=== PATIENT | female | born 1935 | race Caucasian/White ===

== ENCOUNTER 2018-02-16 12:13 | Emergency (ER) | payer OTHER ==
[~2018-02-16] VITALS: Ht 152.4 cm; Wt 56.7 kg
[~2018-02-16 12:13] MED LIST: ATEN50TA PO; BENA20TA14 PO; CLON0.2T PO; FENO160T8 PO; OMEP20CA74 PO
[2018-02-16] MEDS ORDERED: cloNIDine HCL 0.1 MG TAB PO ONE (15:30)
[2018-02-16 16:54] VITALS: BP 146/75
== END 2018-02-16 17:17 | disposition home or self-care (01) ==
LOC: ER 12:13
DX: M71.22 Synovial cyst of popliteal space [Baker], left knee (principal); I10 Essential (primary) hypertension; I25.10 Atherosclerotic heart disease of native coronary artery without angina pectoris; E78.5 Hyperlipidemia, unspecified; M19.90 Unspecified osteoarthritis, unspecified site
CPT/HCPCS: 93971

== ENCOUNTER 2018-11-18 19:13 | Inpatient (IN) | payer OTHER ==
[~2018-11-18] VITALS: Ht 152.4 cm; Wt 58.8 kg
[2018-11-18 20:05] LABS: Basophils # (auto) 0 uL; Basophils % (auto) 0.5 % (0.0-2.0); Eosinophils # (auto) 0.2 uL; Eosinophils % (auto) 2.7 % (0.0-7.0); Hematocrit 41.6 % (36.0-46.0); Hemoglobin 13.9 g/dL (12.2-16.2); Lymphocytes # (auto) 2.3 uL; Lymphocytes % (auto) 27.1 % (10.0-50.0); Mean Corpuscular Hemoglobin 29.8 pg (28.0-32.0); Mean Corpuscular Hgb Conc. 33.4 g/dL (32.0-36.0); Mean Corpuscular Volume 89.3 fL (80.0-100.0); Monocytes # (auto) 0.9 uL; Monocytes % (auto) 10.8 % (0.0-12.0); Neutrophils # (auto) 5.1 uL; Neutrophils % (auto) 58.9 % (37.0-80.0); Platelet Count (auto) 336 10^3/uL (140-450); Red Blood Cells 4.66 10^6/uL (4.0-5.20); Red Cell Distribution Width 14.3 % (11.8-14.3); White Blood Cell 8.6 10^3/uL (4.4-10.8)
[2018-11-18 20:21] LABS: Alanine Aminotransferase 27 U/L (13-56); Albumin 4.7 g/dL (3.4-5.0); Anion Gap 8 (5-15); Blood Urea Nitrogen 34 mg/dL (7-18); Calcium 9.3 mg/dL (8.5-10.1); Carbon Dioxide 21 mmol/L (21-32); Chloride 110 mmol/L (98-107); Glucose 141 mg/dL (74-106); Magnesium 1.7 mg/dL (1.6-2.6); Potassium 4.2 mmol/L (3.5-5.1); Sodium 139 mmol/L (136-145)
[2018-11-18 20:26] LABS: Alkaline Phosphatase 56 U/L (45-117); Aspartate Aminotransferase 33 U/L (15-37); BUN/Creatinine Ratio 19.3; Bilirubin, Total 0.3 mg/dL (0.2-1.0); GFR African American 35 mL/min; GFR Non-African American 29 mL/min; Total Protein 8.8 g/dL (6.4-8.2)
[2018-11-18 20:38] LABS: Partial Thromboplastin Time 27.8 sec (23.78-33.04); Prothrombin Time 10.7 sec (9.27-12.13)
[2018-11-18] MEDS ORDERED: LORazepam 2MG/ML-1ML VIAL IV ONE (21:00)
[2018-11-19] MEDS ORDERED: TEMAZEPAM 15 MG CAP PO PRN (02:00)
[2018-11-19] MEDS ORDERED: HYDROcodone-ACET 5/325MG TAB PO PRN (02:00)
[2018-11-19] MEDS ORDERED: ACETAMINOPHEN 325 MG TAB PO PRN (02:00)
[2018-11-19] MEDS ORDERED: ONDANSETRON HCL 4 MG/2 ML VIAL IV PRN (02:00)
[2018-11-19 04:17] VITALS: BP 149/85
[2018-11-19 04:35] VITALS: BP 149/85
[2018-11-19] MEDS ORDERED: PNEUMOCOCCAL VACC POLYS 25 MCG/0.5 ML VIAL IM ONE (05:00)
[2018-11-19] MEDS: PANTOPRAZOLE 40 MG TAB PO SCH (05:59)
--- NOTE | 2018-11-19 06:19 | NUR ---
Shift Note The patient arrived to the floor at approximately 0300hrs. She is medically stable, A&O x4, denies pain. She had experienced episodes of loss of feeling, numbness, to the right side of her body prior to coming to the ER. She appeared to have equal strength bilaterally during the assessment but admitted the feeling comes and goes. The patient agreed to the pneumonia vaccine but we are current out of stock on the floor. Will pass on to day shift. Med rec completed but the patient feels there may be one med missing from the list. She will have her daughter bring it in.
--- NOTE | 2018-11-19 07:30 | NUR ---
Opening Shift Note Assumed care of patient, awake, alert, and oriented x4. No S/S of distress/SOB or pain. IV in right forearm 20 gauge asymptomatic, patent, intact, and saline locked. Bed locked and in lowest position and call light is within reach. Instructed on POC and to call for assist PRN, and call light within reach. Will continue to monitor for changes Q1hr and PRN.
[2018-11-19 08:00] VITALS: BP 152/73
[2018-11-19] MEDS: ATENOLOL 50 MG TAB PO SCH ×2 (09:49→22:00)
[2018-11-19] MEDS: cloNIDine HCL 0.1 MG TAB PO SCH ×2 (09:50→22:00)
[2018-11-19] MEDS: ENOXAPARIN SOD 30 MG/0.3 ML SYRINGE SC SCH (09:51)
[2018-11-19] MEDS: ASPirin 81 mg TAB PO SCH (10:00)
[2018-11-19] MEDS: FENOFIBRATE 160MG TAB PO SCH (10:00)
--- NOTE | 2018-11-19 10:00 | NUR ---
DR. HOPPER NEUROLOGIST AT BEDSIDE.
[2018-11-19] MEDS ORDERED: LORazepam 2MG/ML-1ML VIAL IV PRN (11:15)
--- NOTE | 2018-11-19 11:59 | NUR ---
PATIENT TAKEN TO MRI VIA WHEELCHAIR.
[2018-11-19 12:00] VITALS: BP 143/80
[2018-11-19 12:24] LABS: Cholesterol 228 mg/dL (< 200); Triglycerides 329 mg/dL (< 150)
[2018-11-19 12:26] LABS: HDL Cholesterol 35 mg/dL (40-59); LDL Cholesterol 146 mg/dL (< 100)
--- NOTE | 2018-11-19 12:45 | NUR ---
PATIENT RETURNED TO ROOM FROM MRI VIA WHEELCHAIR.
[2018-11-19] MEDS ORDERED: ATORVASTATIN 20 MG TAB PO ONE (15:15)
[2018-11-19 16:52] VITALS: BP 128/64
--- NOTE | 2018-11-19 19:00 | NUR ---
ENDORSED CARE TO KIRT GUILLEN.
[2018-11-19 22:00] VITALS: BP 132/67
[2018-11-20 04:42] VITALS: BP 115/64
[2018-11-20 06:02] LABS: Basophils # (auto) 0 uL; Basophils % (auto) 0.7 % (0.0-2.0); Eosinophils # (auto) 0.2 uL; Eosinophils % (auto) 3.7 % (0.0-7.0); Hematocrit 35.9 % (36.0-46.0); Hemoglobin 12.5 g/dL (12.2-16.2); Lymphocytes # (auto) 1.8 uL; Mean Corpuscular Hemoglobin 30.8 pg (28.0-32.0); Mean Corpuscular Hgb Conc. 34.8 g/dL (32.0-36.0); Mean Corpuscular Volume 88.5 fL (80.0-100.0); Monocytes # (auto) 0.8 uL; Monocytes % (auto) 15.2 % (0.0-12.0); Neutrophils # (auto) 2.5 uL; Neutrophils % (auto) 47.4 % (37.0-80.0); Nucleated Red Blood Cells % 0.4 %; Platelet Count (auto) 246 10^3/uL (140-450); Red Blood Cells 4.05 10^6/uL (4.0-5.20); Red Cell Distribution Width 14.4 % (11.8-14.3); White Blood Cell 5.3 10^3/uL (4.4-10.8)
[2018-11-20 06:10] LABS: Calcium 8.8 mg/dL (8.5-10.1); Potassium 4.6 mmol/L (3.5-5.1)
[2018-11-20 06:15] LABS: Albumin 3.6 g/dL (3.4-5.0); BUN/Creatinine Ratio 19.4
[2018-11-20 06:17] LABS: Bilirubin, Total 0.3 mg/dL (0.2-1.0); Total Protein 6.8 g/dL (6.4-8.2)
[2018-11-20] MEDS: PANTOPRAZOLE 40 MG TAB PO SCH (06:44)
--- NOTE | 2018-11-20 07:00 | NUR ---
Opening Shift Note Assumed care of patient, awake, alert, and oriented x4. No S/S of distress/SOB or pain. IV in left forearm 20 gauge asymptomatic, intact, patent, and saline locked. Bed locked and in lowest position and call light is within reach. Instructed on POC and to call for assist PRN, and patient verbalized understanding. Will continue to monitor for changes Q1hr and PRN.
[2018-11-20 09:00] VITALS: BP_SYST 126; BP_SYST 154; BP_DIAS 58; BP_DIAS 76
--- NOTE | 2018-11-20 09:30 | NUR ---
AGED OR DISABLED CARER AT BESIDE TO PERFORM EEG.
[2018-11-20] MEDS: ENOXAPARIN SOD 30 MG/0.3 ML SYRINGE SC SCH (10:00)
[2018-11-20] MEDS: FENOFIBRATE 160MG TAB PO SCH (10:00)
[2018-11-20] MEDS: ASPirin 81 mg TAB PO SCH (10:00)
--- NOTE | 2018-11-20 10:05 | NUR ---
EEG COMPLETED AT BEDSIDE. KIRT GUADARRAMA.
[2018-11-20] MEDS: ATENOLOL 50 MG TAB PO SCH (10:41)
[2018-11-20] MEDS: cloNIDine HCL 0.1 MG TAB PO SCH (10:42)
--- NOTE | 2018-11-20 12:00 | NUR ---
DR. HOPPER AT BEDSIDE.
[2018-11-20 12:45] VITALS: BP 127/87
[2018-11-20] MEDS ORDERED: ASPI81CH43 PO (16:13)
[2018-11-20] MEDS ORDERED: ATOR20TA50 PO (16:13)
[2018-11-20 16:26] VITALS: BP 127/87
[2018-11-20 17:00] VITALS: BP_SYST 115; BP_SYST 153; BP_DIAS 43; BP_DIAS 71
[2018-11-20] MEDS ORDERED: PNEUMOCOCCAL VACC POLYS 25 MCG/0.5 ML VIAL IM ONE (17:45)
--- NOTE | 2018-11-20 18:35 | NUR ---
Discharge instructions given as ordered. Encourage to follow up with PMD as instructed. All questions and concerns addressed. Patient verbalized understanding. Medication reconciliation form completed and copy given to patient. Needed vaccines given. IV removed with catheter intact, pressure dressing applied. Patient taken to vehicle via wheelchair with all personal belongings, accompanied by staff member. No distress noted at time of departure.
[2018-11-20] MEDS ORDERED: ATORVASTATIN 20 MG TAB PO SCH (22:00)
== END 2018-11-20 18:30 | disposition home or self-care (01) | DRG 683 ==
LOC: ER 19:13 → OVERFLOW 11-19 02:00 → WEST WING 11-19 03:54
PROVIDERS: ADMIT Nurse Practitioner; ATTEND Nurse Practitioner
DX: I12.9 Hypertensive chronic kidney disease with stage 1 through stage 4 chronic kidney disease, or unspecified chronic kidney disease (principal); G45.9 Transient cerebral ischemic attack, unspecified; H93.19 Tinnitus, unspecified ear; N18.3 Chronic kidney disease, stage 3 (moderate); E78.5 Hyperlipidemia, unspecified; F40.240 Claustrophobia; M19.90 Unspecified osteoarthritis, unspecified site; R20.2 Paresthesia of skin; I25.10 Atherosclerotic heart disease of native coronary artery without angina pectoris; Z79.82 Long term (current) use of aspirin; Z79.899 Other long term (current) drug therapy; Z82.49 Family history of ischemic heart disease and other diseases of the circulatory system; Z86.73 Personal history of transient ischemic attack (TIA), and cerebral infarction without residual deficits; Z95.5 Presence of coronary angioplasty implant and graft; Z23 Encounter for immunization
CPT/HCPCS: 36415; 70450; 70551; 71045; 80053; 80061; 83735; 84484; 85025; 85610; 85730; 93005; 94761; 95819; 96374; G0378

== ENCOUNTER 2022-01-14 11:30 | Emergency (ER) | payer OTHER ==
[~2022-01-14] VITALS: Ht 152.4 cm; Wt 57.2 kg
[~2022-01-14 11:30] MED LIST changes: +ASPI81CH43 PO; +ATOR20TA50 PO
[2022-01-14 12:24] VITALS: BP 161/77
[2022-01-14] MEDS ORDERED: TRAM-297 PO (13:33)
== END 2022-01-14 13:46 | disposition home or self-care (01) ==
LOC: ER 11:30
DX: M17.12 Unilateral primary osteoarthritis, left knee (principal); I12.9 Hypertensive chronic kidney disease with stage 1 through stage 4 chronic kidney disease, or unspecified chronic kidney disease; N18.9 Chronic kidney disease, unspecified; E78.5 Hyperlipidemia, unspecified; Z87.442 Personal history of urinary calculi
CPT/HCPCS: 73562

== ENCOUNTER 2022-01-20 09:11 | Emergency (ER) | payer OTHER ==
[~2022-01-20] VITALS: Ht 152.4 cm; Wt 57.2 kg
[~2022-01-20 09:11] MED LIST changes: +TRAM-297 PO
[2022-01-20] MEDS ORDERED: DexAMETHasone SOD PHOS 10MG/1ML VIAL INJ IM ONE (13:15)
[2022-01-20] MEDS ORDERED: KETOROLAC TROMETH 60MG/2ML VIAL IM ONE (13:15)
[2022-01-20 14:08] VITALS: BP 164/73
== END 2022-01-20 14:10 | disposition home or self-care (01) ==
LOC: ER 09:11
DX: M17.12 Unilateral primary osteoarthritis, left knee (principal); M71.22 Synovial cyst of popliteal space [Baker], left knee; I12.9 Hypertensive chronic kidney disease with stage 1 through stage 4 chronic kidney disease, or unspecified chronic kidney disease; N18.9 Chronic kidney disease, unspecified; I25.10 Atherosclerotic heart disease of native coronary artery without angina pectoris; E78.5 Hyperlipidemia, unspecified; Z79.82 Long term (current) use of aspirin; Z79.899 Other long term (current) drug therapy
CPT/HCPCS: 73562; 93971; 96372; 99284; J1100; J1885

== ENCOUNTER 2022-11-08 11:46 | Inpatient (IN) | payer OTHER ==
[~2022-11-08] VITALS: Ht 149.9 cm; Wt 52.5 kg
[2022-11-08] MEDS ORDERED: SODIUM CHLORIDE 0.9% 1,000 ML IVB ONE (13:45)
[2022-11-08] MEDS ORDERED: SODIUM CHLORIDE 0.9% 1,000 ML IV ONE (13:45)
[2022-11-08 13:47] LABS: Basophils # (auto) 0.1 10 ^3/uL (0-0.2); Basophils % (auto) 0.6 % (0.0-2.0); Eosinophils # (auto) 0 10 ^3/uL (0-0.8); Eosinophils % (auto) 0.5 % (0.0-7.0); Hematocrit 43.2 % (36.0-46.0); Hemoglobin 14.2 g/dL (12.2-16.2); Lymphocytes # (auto) 1.1 10 ^3/uL (0.4-5.4); Lymphocytes % (auto) 11.9 % (10.0-50.0); Mean Corpuscular Hemoglobin 30.4 pg (28.0-32.0); Mean Corpuscular Hgb Conc. 32.8 g/dL (32.0-36.0); Mean Corpuscular Volume 92.5 fL (80.0-100.0); Monocytes # (auto) 0.8 10 ^3/uL (0-1.3); Nucleated Red Blood Cells % 0.2 %; Red Blood Cells 4.67 10^6/uL (4.0-5.20); Red Cell Distribution Width 14.3 % (11.8-14.3); White Blood Cell 9.1 10^3/uL (4.4-10.8)
[2022-11-08] MEDS ORDERED: ONDANSETRON HCL 4 MG/2 ML VIAL IV ONE ×3 (14:00→21:30)
[2022-11-08 14:04] LABS: Magnesium 1.9 mg/dL (1.6-2.6)
[2022-11-08 14:10] LABS: Urine Bacteria NONE SEEN /hpf (None Seen); Urine Blood Negative /uL (Negative); Urine Hyaline Cast FEW /lpf (0 - 2); Urine Mucus FEW (None Seen); Urine Specific Gravity 1.015 (1.001-1.035); Urine WBC 3 /hpf (0 - 5)
[2022-11-08] MEDS ORDERED: HYDROmorphone HCL 2 MG/ML VL/or syr IV ONE (18:00)
[2022-11-08 18:21] LABS: Sodium 145 mmol/L (136-145)
[2022-11-08 18:22] LABS: Alanine Aminotransferase 25 U/L (13-56); Albumin 4.1 g/dL (3.4-5.0); Alkaline Phosphatase 44 U/L (45-117); Anion Gap 11 (5-15); Aspartate Aminotransferase 37 U/L (15-37); BUN/Creatinine Ratio 14.5; Bilirubin, Total 0.6 mg/dL (0.2-1.0); Blood Urea Nitrogen 24 mg/dL (7-18); Calcium 9.5 mg/dL (8.5-10.1); Carbon Dioxide 17 mmol/L (21-32); Chloride 117 mmol/L (98-107); GFR African American 37 mL/min; GFR Non-African American 31 mL/min; Glucose 115 mg/dL (74-106); Potassium 5.1 mmol/L (3.5-5.1); Total Protein 7.7 g/dL (6.4-8.2)
[2022-11-08] MEDS: ASPirin 325 MG TAB PO ONE ×2 (21:15→21:34)
[2022-11-09] MEDS ORDERED: ACETAMINOPHEN 325 MG TAB PO PRN (06:15)
[2022-11-09] MEDS ORDERED: TEMAZEPAM 15 MG CAP PO PRN (06:15)
[2022-11-09] MEDS ORDERED: ONDANSETRON HCL 4 MG/2 ML VIAL IV PRN (06:15)
[2022-11-09] MEDS ORDERED: HYDROcodone-ACET 5/325MG TAB PO PRN (06:15)
[2022-11-09] MEDS: SODIUM CHLORIDE 0.9% 1,000 ML IV SCH (06:55)
[2022-11-09] MEDS: ATENOLOL 50 MG TAB PO SCH ×2 (09:54→23:08)
[2022-11-09] MEDS: HCTZ 25 MG TAB PO SCH (09:55)
[2022-11-09] MEDS: amLODIPine BESYLATE 5 MG TAB PO SCH (09:55)
[2022-11-09] MEDS ORDERED: ATORVASTATIN 20 MG TAB PO SCH (22:00)
[2022-11-09] MEDS ORDERED: ASPirin 81 mg TAB PO SCH (22:00)
[2022-11-09 23:00] VITALS: BP 137/69
[2022-11-10] MEDS: SODIUM CHLORIDE 0.9% 1,000 ML IV SCH ×2 (03:10→08:55)
[2022-11-10 05:00] VITALS: BP 119/57
[2022-11-10 06:11] LABS: Basophils # (auto) 0.1 10 ^3/uL (0-0.2); Basophils % (auto) 0.7 % (0.0-2.0); Eosinophils # (auto) 0.1 10 ^3/uL (0-0.8); Hematocrit 38.5 % (36.0-46.0); Hemoglobin 12.3 g/dL (12.2-16.2); Lymphocytes # (auto) 1.3 10 ^3/uL (0.4-5.4); Lymphocytes % (auto) 18.7 % (10.0-50.0); Mean Corpuscular Hemoglobin 29.8 pg (28.0-32.0); Mean Corpuscular Hgb Conc. 32.1 g/dL (32.0-36.0); Mean Corpuscular Volume 92.9 fL (80.0-100.0); Monocytes % (auto) 14.1 % (0.0-12.0); Neutrophils # (auto) 4.5 10 ^3/uL (1.6-8.6); Neutrophils % (auto) 64.5 % (37.0-80.0); Nucleated Red Blood Cells % 0.1 %; Red Blood Cells 4.15 10^6/uL (4.0-5.20); Red Cell Distribution Width 13.9 % (11.8-14.3)
[2022-11-10 06:34] LABS: Potassium 4.7 mmol/L (3.5-5.1)
[2022-11-10 06:42] LABS: Albumin 3.6 g/dL (3.4-5.0); BUN/Creatinine Ratio 15.2; Bilirubin, Total 0.5 mg/dL (0.2-1.0); Calcium 9.5 mg/dL (8.5-10.1); Total Protein 6.8 g/dL (6.4-8.2)
[2022-11-10 08:59] VITALS: BP 127/59
[2022-11-10 13:00] VITALS: BP 131/89
[2022-11-10 16:55] VITALS: BP 137/69
[2022-11-10] MEDS: ATENOLOL 50 MG TAB PO SCH (17:24)
[2022-11-10] MEDS: HCTZ 25 MG TAB PO SCH (17:25)
[2022-11-10] MEDS: amLODIPine BESYLATE 5 MG TAB PO SCH (17:26)
[2022-11-10 17:30] VITALS: BP 153/81
[2022-11-10] MEDS ORDERED: ONDA-144 PO (18:07)
[2022-11-11] MEDS ORDERED: PANTOPRAZOLE 40 MG TAB PO SCH (10:00)
== END 2022-11-10 17:55 | disposition home or self-care (01) | DRG 392 ==
LOC: ER 11:46 → EDBD 11:46 → OVERFLOW 11-09 06:14 → WEST WING 11-09 22:18
PROVIDERS: ADMIT Nurse Practitioner; ATTEND Internal Medicine
DX: K52.9 Noninfective gastroenteritis and colitis, unspecified (principal); E78.5 Hyperlipidemia, unspecified; I12.9 Hypertensive chronic kidney disease with stage 1 through stage 4 chronic kidney disease, or unspecified chronic kidney disease; K80.20 Calculus of gallbladder without cholecystitis without obstruction; I25.10 Atherosclerotic heart disease of native coronary artery without angina pectoris; R00.0 Tachycardia, unspecified; K21.9 Gastro-esophageal reflux disease without esophagitis; N18.30 Chronic kidney disease, stage 3 unspecified; Z20.822 Contact with and (suspected) exposure to COVID-19; M19.90 Unspecified osteoarthritis, unspecified site; R77.8 Other specified abnormalities of plasma proteins; Z82.49 Family history of ischemic heart disease and other diseases of the circulatory system; Z87.442 Personal history of urinary calculi; Z98.61 Coronary angioplasty status
CPT/HCPCS: 36415; 71045; 80053; 81001; 82962; 83690; 83735; 83880; 84484; 85025; 87426; 87804; 93005; 93306; 96361; 96374; 96376; G0378; J2405

== ENCOUNTER 2023-02-05 09:59 | Inpatient (IN) | payer OTHER ==
[~2023-02-05] VITALS: Ht 149.9 cm; Wt 56.0 kg
[~2023-02-05 09:59] MED LIST changes: +ONDA-144 PO
[2023-02-05] MEDS ORDERED: diphenhdrAMINE HCL 50 MG/1 ML VL IM ONE (11:00)
[2023-02-05 11:33] LABS: Urine Bacteria NONE SEEN /hpf (None Seen); Urine Blood Negative /uL (Negative); Urine Hyaline Cast FEW /lpf (0 - 2); Urine Specific Gravity 1.015 (1.001-1.035); Urine WBC 2 /hpf (0 - 5)
[2023-02-05 11:35] LABS: Basophils # (auto) 0.1 10 ^3/uL (0-0.2); Basophils % (auto) 0.8 % (0.0-2.0); Eosinophils # (auto) 0.3 10 ^3/uL (0-0.8); Eosinophils % (auto) 4.4 % (0.0-7.0); Hematocrit 37.4 % (36.0-46.0); Hemoglobin 12.2 g/dL (12.2-16.2); Lymphocytes # (auto) 1.6 10 ^3/uL (0.4-5.4); Lymphocytes % (auto) 21.9 % (10.0-50.0); Mean Corpuscular Hemoglobin 29.9 pg (28.0-32.0); Mean Corpuscular Hgb Conc. 32.5 g/dL (32.0-36.0); Mean Corpuscular Volume 91.9 fL (80.0-100.0); Monocytes # (auto) 0.7 10 ^3/uL (0-1.3); Monocytes % (auto) 9.6 % (0.0-12.0); Neutrophils # (auto) 4.6 10 ^3/uL (1.6-8.6); Neutrophils % (auto) 63.3 % (37.0-80.0); Nucleated Red Blood Cells % 0.1 %; Potassium 4.4 mmol/L (3.5-5.1); Red Blood Cells 4.06 10^6/uL (4.0-5.20); Red Cell Distribution Width 14.5 % (11.8-14.3); White Blood Cell 7.3 10^3/uL (4.4-10.8)
[2023-02-05 11:42] LABS: Albumin 4.3 g/dL (3.4-5.0); BUN/Creatinine Ratio 18.5 (10.0-20.0); Bilirubin, Total 0.5 mg/dL (0.2-1.0); Total Protein 7.6 g/dL (6.4-8.2)
[2023-02-05] MEDS ORDERED: SODIUM CHLORIDE 0.9% 500 ML IV ONE (12:45)
[2023-02-05] MEDS ORDERED: cefTRIAXone 1GM/50ML D5W 50 ML IV ONE (12:45)
[2023-02-05 13:29] LABS: Free T3 2.39 pg/mL (2.3-4.2); Free T4 (Free Thyroxine) 0.78 ng/dL (0.89-1.76)
[2023-02-05] MEDS ORDERED: ONDANSETRON HCL 4 MG/2 ML VIAL IV PRN (17:15)
[2023-02-05] MEDS ORDERED: ACETAMINOPHEN 325 MG TAB PO PRN (17:15)
[2023-02-05] MEDS ORDERED: DOCUSATE SOD 100 MG CAP PO PRN (17:15)
[2023-02-05] MEDS ORDERED: HALOPERIDOL 5 MG TAB PO PRN (17:45)
[2023-02-05 18:15] LABS: Alcohol, Urine < 3.0 mg/dL (0-10); Amphetamine Screen, Urine NEGATIVE (NEGATIVE); Barbiturate Scree,Urine NEGATIVE (NEGATIVE); Benzodiazephine Screen, Urine NEGATIVE (NEGATIVE); Cannabinoid Screen, Urine NEGATIVE (NEGATIVE); Cocaine Screen, Urine NEGATIVE (NEGATIVE); Creatinine, Urine 106 mg/dL (30.0-125.0); Opiate Scree,Urine NEGATIVE (NEGATIVE); Phencyclidine Screen, Urine NEGATIVE (NEGATIVE); Sodium Urine 55 mmol/L (40-220)
[2023-02-05] MEDS: SODIUM CHLORIDE 0.9% 1,000 ML IV SCH (18:17)
[2023-02-05] MEDS: cloNIDine HCL 0.1 MG TAB PO SCH (22:30)
[2023-02-05] MEDS: ATENOLOL 50 MG TAB PO SCH (22:31)
[2023-02-05] MEDS: ATORVASTATIN 20 MG TAB PO SCH (22:31)
[2023-02-05] MEDS ORDERED: LORazepam 2MG/ML-1ML VIAL IV PRN (23:15)
[2023-02-05] MEDS ORDERED: traZODone HCL 50 MG TAB PO PRN (23:15)
[2023-02-06 06:41] LABS: Basophils # (auto) 0 10 ^3/uL (0-0.2); Basophils % (auto) 0.7 % (0.0-2.0); Eosinophils # (auto) 0.2 10 ^3/uL (0-0.8); Hematocrit 31.8 % (36.0-46.0); Hemoglobin 10.9 g/dL (12.2-16.2); Lymphocytes # (auto) 1.5 10 ^3/uL (0.4-5.4); Lymphocytes % (auto) 24.5 % (10.0-50.0); Mean Corpuscular Hemoglobin 30.1 pg (28.0-32.0); Mean Corpuscular Hgb Conc. 34.1 g/dL (32.0-36.0); Mean Corpuscular Volume 88.2 fL (80.0-100.0); Monocytes # (auto) 0.8 10 ^3/uL (0-1.3); Monocytes % (auto) 12.1 % (0.0-12.0); Neutrophils # (auto) 3.7 10 ^3/uL (1.6-8.6); Neutrophils % (auto) 58.7 % (37.0-80.0); Nucleated Red Blood Cells % 0.1 %; Red Blood Cells 3.61 10^6/uL (4.0-5.20); Red Cell Distribution Width 14.1 % (11.8-14.3); White Blood Cell 6.2 10^3/uL (4.4-10.8)
[2023-02-06 06:56] LABS: Albumin 3.4 g/dL (3.4-5.0); BUN/Creatinine Ratio 19.5 (10.0-20.0); Calcium 8.6 mg/dL (8.5-10.1); Potassium 4.5 mmol/L (3.5-5.1)
[2023-02-06 06:59] LABS: Bilirubin, Total 0.4 mg/dL (0.2-1.0); Total Protein 6.8 g/dL (6.4-8.2)
[2023-02-06] MEDS: LEVOTHYROXINE SODIUM 50 MCG TAB PO SCH (07:16)
[2023-02-06] MEDS: SODIUM CHLORIDE 0.9% 1,000 ML IV SCH (07:33)
[2023-02-06] MEDS: cefTRIAXone 1GM/50ML D5W 50 ML IV SCH (09:32)
[2023-02-06] MEDS: ASPirin 81 mg TAB PO SCH (09:32)
[2023-02-06] MEDS: PANTOPRAZOLE 40 MG TAB PO SCH (09:33)
[2023-02-06] MEDS: cloNIDine HCL 0.1 MG TAB PO SCH ×2 (09:33→22:00)
[2023-02-06] MEDS: ATENOLOL 50 MG TAB PO SCH ×2 (09:34→22:00)
[2023-02-06] MEDS: BENAZEPRIL HCL 10 MG TAB PO SCH (09:38)
[2023-02-06] MEDS ORDERED: ENOXAPARIN SOD 40 MG/0.4 ML SYRINGE SC SCH (10:00)
[2023-02-06] MEDS ORDERED: PATIENTS OWN MEDICATION (Fenofibrate 1 TAB) PO SCH (10:00)
[2023-02-06] MEDS ORDERED: PATIENTS OWN MEDICATION (Benazepril Hcl 1 TAB) PO SCH (10:00)
[2023-02-06] MEDS: SODIUM BICARBONATE 50ML VIAL 50 ML in SOD CHL 0.45% 1,000 ML IV SCH (12:00)
[2023-02-06 20:00] VITALS: BP 185/93
[2023-02-06 22:00] VITALS: BP 137/67
[2023-02-06] MEDS: ATORVASTATIN 20 MG TAB PO SCH (22:00)
[2023-02-06] MEDS ORDERED: traZODone HCL 50 MG TAB PO PRN (22:00)
[2023-02-07] MEDS: SODIUM BICARBONATE 50ML VIAL 50 ML in SOD CHL 0.45% 1,000 ML IV SCH ×2 (00:45→10:19)
[2023-02-07 04:48] VITALS: BP 147/49
[2023-02-07] MEDS: LEVOTHYROXINE SODIUM 50 MCG TAB PO SCH (04:49)
[2023-02-07 09:00] VITALS: BP 164/84
[2023-02-07] MEDS: cefTRIAXone 1GM/50ML D5W 50 ML IV SCH (09:07)
[2023-02-07] MEDS: PANTOPRAZOLE 40 MG TAB PO SCH (09:13)
[2023-02-07] MEDS: cloNIDine HCL 0.1 MG TAB PO SCH ×2 (09:14→21:35)
[2023-02-07] MEDS: ATENOLOL 50 MG TAB PO SCH ×2 (09:14→21:35)
[2023-02-07] MEDS: BENAZEPRIL HCL 10 MG TAB PO SCH (09:15)
[2023-02-07] MEDS: ENOXAPARIN SOD 30 MG/0.3 ML SYRINGE SC SCH (09:15)
[2023-02-07] MEDS: ASPirin 81 mg TAB PO SCH (09:18)
[2023-02-07 13:00] VITALS: BP 151/58
[2023-02-07] MEDS ORDERED: IOHEXOL 300 MG/ML 100ML BOTTLE IJ ONE (14:55)
[2023-02-07] MEDS ORDERED: GASTROGRAFIN 30 ML SOL ONE (14:55)
[2023-02-07 17:58] VITALS: BP 178/83
[2023-02-07 20:00] VITALS: BP 166/75
[2023-02-07] MEDS: ATORVASTATIN 20 MG TAB PO SCH (21:35)
[2023-02-07 22:00] VITALS: BP_SYST 122; BP_SYST 166; BP_DIAS 69; BP_DIAS 75
[2023-02-08 04:43] VITALS: BP 147/54
[2023-02-08] MEDS: SODIUM BICARBONATE 50ML VIAL 50 ML in SOD CHL 0.45% 1,000 ML IV SCH (06:07)
[2023-02-08] MEDS: LEVOTHYROXINE SODIUM 50 MCG TAB PO SCH (06:25)
[2023-02-08 09:00] VITALS: BP 174/73
[2023-02-08] MEDS: cefTRIAXone 1GM/50ML D5W 50 ML IV SCH (09:00)
[2023-02-08] MEDS: BENAZEPRIL HCL 10 MG TAB PO SCH (09:22)
[2023-02-08] MEDS: ATENOLOL 50 MG TAB PO SCH (09:22)
[2023-02-08] MEDS: PANTOPRAZOLE 40 MG TAB PO SCH (09:23)
[2023-02-08] MEDS: ASPirin 81 mg TAB PO SCH (09:23)
[2023-02-08] MEDS: cloNIDine HCL 0.1 MG TAB PO SCH (09:23)
[2023-02-08] MEDS: ENOXAPARIN SOD 30 MG/0.3 ML SYRINGE SC SCH (09:23)
[2023-02-08 12:06] VITALS: BP 174/73
[2023-02-08] MEDS ORDERED: TRAZ50TA2 PO (12:54)
== END 2023-02-08 13:08 | disposition home or self-care (01) | DRG 92 ==
LOC: ER 09:59 → OVERFLOW 17:12 → WEST WING 02-06 14:54
PROVIDERS: ADMIT Nurse Practitioner Family; ATTEND Internal Medicine
DX: G92.8 Other toxic encephalopathy (principal); F19.951 Other psychoactive substance use, unspecified with psychoactive substance-induced psychotic disorder with hallucinations; I13.0 Hypertensive heart and chronic kidney disease with heart failure and stage 1 through stage 4 chronic kidney disease, or unspecified chronic kidney disease; N17.9 Acute kidney failure, unspecified; N30.01 Acute cystitis with hematuria; N18.4 Chronic kidney disease, stage 4 (severe); E03.9 Hypothyroidism, unspecified; D63.1 Anemia in chronic kidney disease; F51.04 Psychophysiologic insomnia; I25.10 Atherosclerotic heart disease of native coronary artery without angina pectoris; I50.9 Heart failure, unspecified; T45.0X5A Adverse effect of antiallergic and antiemetic drugs, initial encounter; T44.3X5A Adverse effect of other parasympatholytics [anticholinergics and antimuscarinics] and spasmolytics, initial encounter; M19.90 Unspecified osteoarthritis, unspecified site; K21.9 Gastro-esophageal reflux disease without esophagitis; F40.240 Claustrophobia; E78.5 Hyperlipidemia, unspecified; N28.1 Cyst of kidney, acquired; Z82.49 Family history of ischemic heart disease and other diseases of the circulatory system; Z79.899 Other long term (current) drug therapy; Z87.442 Personal history of urinary calculi; Z95.5 Presence of coronary angioplasty implant and graft; Y92.89 Other specified places as the place of occurrence of the external cause
CPT/HCPCS: 36415; 70450; 70551; 74177; 76775; 80053; 80307; 81001; 82306; 82570; 83970; 84100; 84300; 84439; 84443; 84481; 85025; 87086; 95819; 96365; 96372; 96375; G0378; J0696

== ENCOUNTER → 2023-05-21 | Emergency (ER) | payer OTHER ==
[~2023-05-21] VITALS: Ht 149.9 cm; Wt 50.0 kg
[~2023-05-21] MED LIST changes: +BENA-36 PO; -BENA20TA14 PO; +FENO160T PO; -FENO160T8 PO; +NITR-87 PO; +PHEN-1044 PO; +PHENAZOPYRIDINE HCL 100 MG TAB PO ONE; +TRAZ-227 PO
[2023-05-21 17:46] VITALS: BP 124/78; PULSE 63; RESP 21; TEMP 98.8; O2SAT 94
[2023-05-21 17:47] LABS: Urine Bacteria NONE SEEN /hpf (None Seen); Urine Blood Negative /uL (Negative); Urine Specific Gravity 1.015 (1.001-1.035); Urine WBC 15 /hpf (0 - 5)
== END | disposition home or self-care (01) ==
LOC: ER 16:33
DX: N39.0 Urinary tract infection, site not specified (principal); I12.9 Hypertensive chronic kidney disease with stage 1 through stage 4 chronic kidney disease, or unspecified chronic kidney disease; N18.9 Chronic kidney disease, unspecified; E78.5 Hyperlipidemia, unspecified; Z87.442 Personal history of urinary calculi
CPT/HCPCS: 81001